=== PATIENT | male | born 1950 | race Caucasian/White ===

== ENCOUNTER 2021-12-20 18:54 | Emergency (ER) | payer OTHER, SELFPAY ==
--- NOTE | ~2021-12-20 | CT_ITS ---
EXAMINATION: CT brain wo con DATE: 12/20/2021 19:49 INDICATION: slurred speech, ataxia . TECHNIQUE: Computed tomography (CT) of the head was performed without intravenous contrast. The mA wa s adjusted according to patient size. Iterative reconstruction technique was employed. The dose-lengt h product was 908.00 mGy-cm. COMPARISON: None FINDINGS: Motion limited examination that required repeat imaging. No acute intracranial hemorrhage or extra-axial fluid collection. No hydrocephalus, mass, or herniation. No acute ischemic infarct. Unremarkable dural venous sinus attenuation. No acute osseous abnormality. The aerated spaces are clear. Mild atrophy and chronic white matter change. Atherosclerotic intracranial calcifications. IMPRESSION: Motion limited examination. Within that constraint, no acute intracranial process. Reviewed, dictated and finalized at location K. IMPRESSION: Motion limited examination. Within that constraint, no acute intracranial proce ss.
[2021-12-20 19:00] VITALS: BP 136/90; PULSE 68; RESP 15; O2SAT 100
--- NOTE | 2021-12-20 19:39 | ED.NEUROSD ---
HPI - Neuro Symptoms/Deficit General Chief Complaint: Alcohol Stated Complaint: unspecified Time Seen by Provider: 12/20/21 19:03 History of Present Illness HPI Narrative: 71-year-old male presents here after he was found stumbling with slurred speech, he had had 6 beers earlier but per his friends and family he is usually not in the state after just drinking 6 beers, he had also supposedly hit his head, he states that he is on a blood thinner but cannot recall what. Denies any focal numbness or weakness. Related Data Home Medications Medication Instructions Recorded Confirmed Unable to Obtain Home Medications 12/20/21 12/20/21 Allergies Allergy/AdvReac Type Severity Reaction Status Date / Time No Known Allergies Allergy Verified 12/20/21 19:48 Review of Systems Review of Systems: CONST: No fever. HEENT: Head trauma C/V: No chest pain RESP: No cough GI: No nausea or vomiting : No dysuria. M/S: No joint pain. SKIN: Contusion the head NEURO: [No focal numbness or weakness] PSYCH: [No depression] PMFSH Past Medical History Medical History (Updated 12/20/21 @ 20:36 by Marlene Vargas MD) Hypertension Social History Social History (Updated 12/20/21 @ 19:43 by Marlene Vargas MD) Alcohol intake: current Course Vital Signs Vital signs: Vital Signs Pulse Rate 68 12/20/21 19:00 Respiratory Rate 15 12/20/21 19:00 Blood Pressure 136/90 12/20/21 19:00 Pulse Oximetry 100 12/20/21 19:00 Oxygen Delivery Room Air 12/20/21 19:00 Pulse Rate 68 12/20/21 19:00 Respiratory Rate 15 12/20/21 19:00 Blood Pressure 136/90 12/20/21 19:00 Pulse Oximetry 100 12/20/21 19:00 Oxygen Delivery Room Air 12/20/21 19:00 MDM - Neuro Symptoms/Deficit MDM Narrative Medical decision making narrative: 71-year-old male presents here after having a few alcoholic drinks, his friends noticed that he seemed to be stumbling and slurring and hit his head, patient himself denies any concerns. Vital signs stable, exam does show a Gigli affable male who appears acutely intoxicated with slight slurred speech, NIH stroke scale here is 1. Very low concern for CVA as more likely secondary to alcohol intoxication, but I will obtain a CT head Noncon to rule out hemorrhage. This is negative for acute bleed, patient slurred speech has already been improving while he has been in the ER, and alcohol level here is confirmed to be elevated at 284 and UDS + for cannabis, he does have someone who had come to take him home and I feel this is reasonable, he is to follow-up with his primary care doctor in the next 1 to 2 days and can come back if he has any further issues Lab Data Result diagrams: 12/20/21 20:00 12/20/21 20:01 Labs: Lab Results 12/20/21 12/20/21 12/20/21 Range/Units 20:00 20:00 20:01 WBC 11.9 H (4.5-10.0) K/mm3 RBC 3.97 L (4.6-6.20) M/mm3 Hgb 14.0 (14.0-18.0) g/dL Hct 41.3 L (42.0-52.0) % MCV 104.0 H (80-100) fl MCH 35.3 H (26-34) pg MCHC 33.9 (32-36) g/dl RDW 14.0 (11.5-14.5) % Plt Count 202 (150-375) k/mm3 MPV 9.7 (7.4-10.4) fl Immature Gran % (Auto) 0.3 (0-0.5) % Neut % (Auto) 65.9 (45.5-73.1) % Lymph % (Auto) 24.5 (18.3-44.2) % [place] % (Auto) 7.1 (2.6-8.5) % Eos % (Auto) 1.3 (0-4.4) % Baso % (Auto) 0.9 (0.2-1.2) % Lymph # (Auto) 2.91 (0.9-3.2) K/mm3 [place] # (Auto) 0.8 H (0.1-0.6) K/mm3 Eos # (Auto) 0.2 (0-0.3) K/mm3 Baso # (Auto) 0.1 (0.0-0.1) K/mm3 Abs Immat Gran (auto) 0.04 H (0.00-0.031) K/mm3 Absolute Neuts (auto) 7.8 H (1.3-6.7) K/mm3 Absolute Nucleated RBC 0.0 (0.0-0.012) K/mm3 Nucleated RBC % 0.0 (0.0-0.2) % PT (11.1-14.7) Seconds INR APTT (22.3-36.8) SECONDS Sodium 134 L (137-145) mmol/L Potassium 3.9 (3.4-5.0) mmol/L Chloride 104 (98-107) mmol/L Carbon Dioxide 19 L (22-30) mmol/L Anion Gap 11
[2021-12-20 20:08] LABS: Basophils Absolute Auto 0.1 K/mm3 (0.0-0.1); Basophils Percent Auto 0.9 % (0.2-1.2); Eosinophils Absolute Auto 0.2 K/mm3 (0-0.3); Eosinophils Percent Auto 1.3 % (0-4.4); Hematocrit 41.3 % (42.0-52.0); Immature Granulocyte Absolute 0.04 K/mm3 (0.00-0.031); Immature Granulocyte Percent A 0.3 % (0-0.5); Lymphocytes Absolute Auto 2.91 K/mm3 (0.9-3.2); Lymphocytes Percent Auto 24.5 % (18.3-44.2); Mean Corpuscular HGB Conc 33.9 g/dl (32-36); Mean Corpuscular Hemoglobin 35.3 pg (26-34); Mean Platelet Volume 9.7 fl (7.4-10.4); Monocytes Absolute Auto 0.8 K/mm3 (0.1-0.6); Monocytes Percent Auto 7.1 % (2.6-8.5); Neutrophils Absolute Auto 7.8 K/mm3 (1.3-6.7); Neutrophils Percent Auto 65.9 % (45.5-73.1); Platelet Count Result 202 k/mm3 (150-375); Red Blood Count 3.97 M/mm3 (4.6-6.20); White Blood Count 11.9 K/mm3 (4.5-10.0)
[2021-12-20 20:17] LABS: Prothrombin Time 13.2 Seconds (11.1-14.7)
[2021-12-20 20:18] LABS: Ethanol 284 mg/dL (<10)
[2021-12-20 20:19] LABS: Alanine Aminotransferase 22 U/L (6-50); Albumin Level 4.4 g/dL (3.5-5.1); Alkaline Phosphatase 66 U/L (38-126); Anion Gap 11 mmol/L (8-16); Aspartate Amino Transferase 29 U/L (17-59); Bilirubin,Total 0.3 mg/dL (0.2-1.3); Blood Urea Nitrogen 12 mg/dL (9-20); Calcium 8.6 mg/dL (8.4-10.2); Carbon Dioxide 19 mmol/L (22-30); Chloride 104 mmol/L (98-107); Estimated CRCL calculation 48 ml/min; Estimated Glomerular Filt Rate 54; Glucose 91 mg/dL (65-110); Potassium 3.9 mmol/L (3.4-5.0); Sodium 134 mmol/L (137-145)
[2021-12-20 20:31] LABS: Troponin I < 0.012 ng/mL (0.000-0.034)
[2021-12-20 20:33] LABS: Amphetamine Screen Urine Negative (Negative); Barbiturate Screen Urine Negative (Negative); Benzodiazepines Screen Urine Negative (Negative); Cannabinoid Screen Urine Positive (Negative); Cocaine Screen Urine Negative (Negative); Methadone Screen Urine Negative (Negative); Opiate Screen Urine Negative (Negative); Phencyclidine Screen Urine Negative (Negative)
[2021-12-20 20:36] LABS: Add Urine Microscopic? NO; Appearance Urine Clear (Clear); Bacteria Urine Trace /hpf; Bilirubin Urine Negative (Negative); Blood Urine Negative (Negative); Color Urine Yellow (Yellow); Glucose Urine UA Negative (Negative); Ketones Urine Negative (Negative); Leukocyte Esterase Ur Negative LEU/UL (Negative); Nitrate Urine Negative (Negative); Protein Urine Negative (Negative); RBC Urine 0-2 /hpf (0-2); Specific Grav Ur <= 1.005 (1.001-1.035); Urobilinogen Urine 0.2 mg/dL (<2.0); WBC Urine 0-3 /hpf; pH Urine 5.5 (5.0-9.0)
[2021-12-20 20:53] VITALS: BP 142/70; PULSE 78; RESP 16; TEMP 36.6; O2SAT 98
== END 2021-12-20 20:57 | disposition home or self-care (01) ==
PROVIDERS: Emergency Provider Emergency Medicine
DX: F10.129 Alcohol abuse with intoxication, unspecified (principal); Y90.8 Blood alcohol level of 240 mg/100 ml or more; I10 Essential (primary) hypertension
CPT/HCPCS: 36415; 70450; 80053; 80307; 81003; 84484; 85025; 85610; 85730; 99284

== ENCOUNTER 2024-09-21 18:01 | Emergency (ER) | payer OTHER, SELFPAY ==
--- NOTE | ~2024-09-21 | CT_ITS ---
EXAMINATION: CT brain wo con DATE: 09/21/2024 18:51 INDICATION: altered loc . TECHNIQUE: Computed tomography (CT) of the head was performed without intravenous contrast. The mA wa s adjusted according to patient size. Iterative reconstruction technique was employed. The dose-lengt h product was 681.00 mGy-cm. COMPARISON: 12/20/2021. FINDINGS: No acute intracranial hemorrhage or extra-axial fluid collection. No hydrocephalus, mass, or herniation. No acute ischemic infarct. Unremarkable dural venous sinus attenuation. No acute osseous abnormality. The aerated spaces are clear. Mild atrophy and chronic white matter change. Atherosclerotic intracranial calcifications. IMPRESSION: No acute intracranial process. Reviewed, dictated and finalized at location K.
--- NOTE | ~2024-09-21 | XR_ITS ---
EXAMINATION: XR chest 1V Exam Date/Time: 09/21/2024 18:45 CDT HISTORY: cough Comparison: None. RESULT: Lines, tubes, and devices: None. Lungs and pleura: Minimal streaky right basilar opacities representing atelectasis, otherwise clear. Cardiomediastinal silhouette: Stable. Other: No acute osseous or upper abdominal finding. IMPRESSION: No acute cardiopulmonary process. Reviewed, dictated and finalized at location K.
[2024-09-21 18:02] VITALS: BP 131/97; PULSE 74; RESP 20; O2SAT 73
[2024-09-21 18:10] VITALS: TEMP 36.2
[2024-09-21 18:11] VITALS: PULSE 89
--- NOTE | 2024-09-21 18:21 | ED_ITS ---
HPI - Altered Mental Status General Chief Complaint: Altered Mental Status <Benitofrancis Avilesver III, DO - Last Filed: 09/21/24 18:28> Stated Complaint: found on ground, altered <Benitofrancis Avilesver III, DO - Last Filed: 09/21/24 18:28> Time Seen by Provider: 09/21/24 18:11 <Benitofrancis Landry Villalobos III, DO - Last Filed: 09/21/24 18:28> History of Present Illness HPI narrative: Pt found on ground not responding. Pt now more awake. admits to drinking 4 beers and smoking a lot of weed. Pt not sure how he got here and doesn't remember EMS ride or any fall. <Benito Avilesver III, DO - Last Filed: 09/21/24 18:28> Related Data Home Medications: Home Medications ?Medication ?Instructions ?Recorded ?Confirmed ?Last Taken ?Type Unable to Obtain Home Medications 12/20/21 12/20/21 Unknown History <Benito Avilesver III, DO - Last Filed: 09/21/24 18:28> Allergies/Adverse Reactions: Allergies Allergy/AdvReac Type Severity Reaction Status Date / Time No Known Allergies Allergy Verified 09/21/24 20:10 <Benitofrancis Villalobos III, DO - Last Filed: 09/21/24 18:28> Review of Systems 2 Review of Systems: All systems reviewed & are unremarkable except as noted in HPI and below <Benito Avilesver III, DO - Last Filed: 09/21/24 18:28> PMFSH Past Medical History Medical History: Medical History (Updated 09/21/24 @ 20:50 by Diana Long MD) Hypertension <Benitofrancis Villalobos III, DO - Last Filed: 09/21/24 18:28> Social History Social History: Social History (Updated 12/20/21 @ 19:43 by Marlene Vargas MD) Alcohol intake: current <Benitofrancis Avilesver III, DO - Last Filed: 09/21/24 18:28> Exam 2 Const: General: healthy appearing and no acute distress <Benito Frantz Villalobos III, DO - Last Filed: 09/21/24 18:28> Nutritional Appearance: well nourished <Benitofrancis Landry Villalobos III, DO - Last Filed: 09/21/24 18:28> Limitations: altered mental status <Benito Frantz Villalobos III, DO - Last Filed: 09/21/24 18:28> HENMT: Head: contusion (abrasion to forehead) <Benito Frantz Villalobos III, DO - Last Filed: 09/21/24 18:28> Resp: Effort & Inspection: normal respiratory effort <Benito Frantz Villalobos III, DO - Last Filed: 09/21/24 18:28> Auscultation: clear to auscultation bilaterally <Benito Frantz Villalobos III, DO - Last Filed: 09/21/24 18:28> Cardio: Rate: regular rate <Benito Frantz Villalobos III, DO - Last Filed: 09/21/24 18:28> Rhythm: regular rhythm <Benito Frantz Villalobos III, DO - Last Filed: 09/21/24 18:28> GI: GI Palp: Yes Soft to palpation and No Tenderness to palpation present (GI) <Benito Frantz Villalobos III, DO - Last Filed: 09/21/24 18:28> Auscultation: normal bowel sounds <Benito Frantz Villalobos III, DO - Last Filed: 09/21/24 18:28> Back/Spine/Pelvis: Back: no CVA tenderness <Benito Frantz Villalobos III, DO - Last Filed: 09/21/24 18:28> Skin: General skin exam: normal color <Benito Frantz Villalobos III, DO - Last Filed: 09/21/24 18:28> Rashes: no rashes <Benito Frantz Villalobos III, DO - Last Filed: 09/21/24 18:28> Wounds: wounds noted (abrasion to right hand) <Benito Frantz Villalobos III, DO - Last Filed: 09/21/24 18:28> Neuro: General: moves all extremities, no meningeal signs, no focal motor deficits and CN's II-XI intact bilaterally <Benito Frantz Villalobos III, DO - Last Filed: 09/21/24 18:28> Speech: Abnormal speech present (slurred slightly) slurred <Benito Frantz Villalobos III, DO - Last Filed: 09/21/24 18:28> Extrem: General: normal to inspection and no clubbing, cyanosis or edema < Benito Frantz Villalobos III, DO - Last Filed: 09/21/24 18:28> Psych: Affect: normal affect <Benito Frantz Villalobos III, DO - Last Filed: 09/21/24 18:28> Attitude: cooperative <Benito Frantz Villalobos III, DO - Last Filed: 09/21/24 18:28> Other: odor of etoh on breath, pt oriented to self now and answering questions. <Benito Frantz Villalobos III, DO - Last Filed: 09/21/24 18:28> Course Vital Signs Vital signs: Vital Signs Pulse Rate 74 09/21/24 18:02 Respiratory Rate 20 09/21/24 18:02 Blood Pressure 131/97 H 09/21/24 18:02 Pulse Oximetry 73 L 09/21/24 18:02 Oxygen Delivery Room Air 09/21/24 18:02 Temperature 97.1 F L 09/21/24 18:10 Pulse Rate 89 09/21/24 18:11 Respiratory Rate 20 09/21/24 18:02 Blood Pressure 131/97 H 09/21/24 18:02 Pulse Oximetry 73 L 09/21/24 18:02 Oxygen Delivery Room Air 09/21/24 18:18 <Benito Frantz Villalobos III, DO - Last Filed: 09/21/24 18:28> Vital Signs Pulse Rate 74 09/21/24 18:02 Respiratory Rate 20 09/21/24 18:02 Blood Pressure 131/97 H 09/21/24 18:02 Pulse Oximetry 73 L 09/21/24 18:02 Oxygen Delivery Room Air 09/21/24 18:02 Temperature 97.1 F L 09/21/24 18:10 Pulse Rate 89 09/21/24 18:11 Respiratory Rate 20 09/21/24 18:02 Blood Pressure 131/97 H 09/21/24 18:02 Pulse Oximetry 73 L 09/21/24 18:02 Oxygen Delivery Room Air 09/21/24 18:18 <Diana Long MD - Last Filed: 09/21/24 23:24> MDM - Altered Mental Status MDM Narrative Medical decision making narrative: Pt found unresponsive. admits to consuming alcohol and marijuana. will get labs and altered LOC work up including CT brain and sepsis work up. will turn over to Dr Long at 1900 pending work up. <Benito Villalobos III, DO - Last Filed: 09/21/24 18:28> Pt found unresponsive. admits to consuming alcohol and marijuana. will get labs and altered LOC work up including CT brain and sepsis work up. will turn over to Dr Long at 1900 pending work up. Patient was signed out to me pending remainder of the workup. Laboratory results obtained revealing an alcohol level of 290, lactic acid of 2.5 otherwise unremarkable. Urinalysis unremarkable. Urine drug test did return back positive for cannabinoids. Patient was informed that he needs to be observed in the emergency department until he is clinically sober. Imaging studies obtained included CT brain without IV contrast which was independently interpreted by me revealing no acute intracranial process, which is pending final radiology interpretation. Portable chest x-ray was also obtained at this time include interpreted by me revealing no acute cardiopulmonary process. Differential diagnosis considerations include alcohol intoxication, drug intoxication, infectious process. Comorbidities impacting this visit include none. I have evaluated and discussed social determinants of health with the patient that could potentially impact subsequent diagnosis and treatment plans. On repeat assessment of the patient, reevaluation revealed that the patient is doing well and is in no acute distress. Patient symptoms have improved since he arrived to our emergency department. Repeat vital signs were all reviewed and noted to be stable. Differential diagnosis and treatment plan were discussed with the patient at bedside. Patient has a sober ride home, his friend En is here to pick him up. Patient will follow up with his PCP in 3-5 days. Patient was provided with strict return precautions and instructed to return to the emergency department if any new or worsening symptoms develop. The patient was discharged in stable condition. <Diana Long MD - Last Filed: 09/21/24 23:24> Lab Data Result diagrams: 09/21/24 19:46 09/21/24 19:46 <Benito Villalobos III, DO - Last Filed: 09/21/24 18:28> Labs: Lab Results 09/21/24 09/21/24 Range/Units 19:46 20:17 WBC 12.8 H (4.5-10.0) K/mm3 RBC 4.50 L (4.6-6.20) M/mm3 Hgb 15.5 (14.0-18.0) g/dL Hct 45.1 (42.0-52.0) % MCV 100.2 H (80-100) fl MCH 34.4 H (26-34) pg MCHC 34.4 (32-36) g/dl RDW 13.7 (11.5-14.5) % Plt Count 207 (150-375) k/mm3 MPV 9.5 (7.4-10.4) fl Immature Gran % (Auto) 0.6 H (0-0.5) % Neut % (Auto) 72.0 (45.5-73.1) % Lymph % (Auto) 16.3 L (18.3-44.2) % [place] % (Auto) 5.7 (2.6-8.5) % Eos % (Auto) 4.5 H (0-4.4) % Baso % (Auto) 0.9 (0.2-1.2) % Lymph # (Auto) 2.09 (0.9-3.2) K/mm3 [place] # (Auto) 0.7 H (0.1-0.6) K/mm3 Eos # (Auto) 0.6 H (0-0.3) K/mm3 Baso # (Auto) 0.1 (0.0-0.1) K/mm3 Abs Immat Gran (auto) 0.08 H (0.00-0.031) K/mm3 Absolute Neuts (auto) 9.3 H (1.3-6.7) K/mm3 Absolute Nucleated RBC 0.000 (0.0-0.012) K/mm3 Nucleated RBC % 0.0 (0.0-0.2) % PT 13.5 (11.1-14.7) Seconds INR 1.0 APTT 27.0 (22.3-36.8) Seconds Sodium 133 L (137-145) mmol/L Potassium 3.7 (3.4-5.0) mmol/L Chloride 99 (98-107) mmol/L Carbon Dioxide 18 L (22-30) mmol/L Anion Gap 16 H (4-12) mmol/L BUN 11 (9-20) mg/dL Creatinine 1.19 (0.7-1.3) mg/dL Estim Creat Clear Calc 59 ml/min Estimated GFR 60 (59 - ) Glucose 100 (65-110) mg/dL Lactic Acid 2.5 H (0.7-2.0) mmol/L Calcium 8.6 (8.4-10.2) mg/dL Total Bilirubin 0.4 (0.2-1.3) mg/dL AST 34 (17-59) U/L ALT 34 (6-50) U/L Alkaline Phosphatase 72 (38-126) U/L Total Protein 7.0 (6.3-8.2) g/dL Albumin 4.5 (3.5-5.1) g/dL Urine Color Yellow (Yellow) Urine Appearance Clear (Clear) Urine pH 5.5 (5.0-9.0) Ur Specific [place] 1.005 (1.001-1.035) Urine Protein Negative (Negative) mg/dL Urine Glucose (UA) Negative (Negative) mg/dL Urine Ketones Negative (Negative) mg/dL Ur Blood (Man) Negative (Negative) Urine Nitrate Negative (Negative) Urine Bilirubin Negative (Negative) Urine Urobilinogen 0.2 (<2.0) mg/dL Add Ur Microanalysis Reviewed Leukocyte Esterase Rfl Trace H (Negative) PERLA/UL Urine RBC 0-2 (0-2) /hpf Urine WBC 0-5 (0-3) /hpf Ur Squamous Epith Cells None seen (Few) /hpf Urine Bacteria None seen /hpf Urine Casts 0-2 Salicylates < 1.0 L (2-20) mg/dL Urine Opiates Screen Negative (Negative) Urine Methadone Screen Negative (Negative) Acetaminophen < 10 L (10-30) ug/mL Ur Barbiturates Screen Negative (Negative) Ur Phencyclidine Scrn Negative (Negative) Ur Amphetamine Screen Negative (Negative) U Benzodiazepines Scrn Negative (Negative) Urine Cocaine Screen Negative (Negative) U Cannabinoids Screen Positive A (Negative) Ethyl Alcohol 290 (<10) mg/dL <Benito Villalobos III, DO - Last Filed: 09/21/24 18:28> Lab Results 09/21/24 09/21/24 Range/Units 19:46 20:17 WBC 12.8 H (4.5-10.0) K/mm3 RBC 4.50 L (4.6-6.20) M/mm3 Hgb 15.5 (14.0-18.0) g/dL Hct 45.1 (42.0-52.0) % MCV 100.2 H (80-100) fl MCH 34.4 H (26-34) pg MCHC 34.4 (32-36) g/dl RDW 13.7 (11.5-14.5) % Plt Count 207 (150-375) k/mm3 MPV 9.5 (7.4-10.4) fl Immature Gran % (Auto) 0.6 H (0-0.5) % Neut % (Auto) 72.0 (45.5-73.1) % Lymph % (Auto) 16.3 L (18.3-44.2) % [place] % (Auto) 5.7 (2.6-8.5) % Eos % (Auto) 4.5 H (0-4.4) % Baso % (Auto) 0.9 (0.2-1.2) % Lymph # (Auto) 2.09 (0.9-3.2) K/mm3 [place] # (Auto) 0.7 H (0.1-0.6) K/mm3 Eos # (Auto) 0.6 H (0-0.3) K/mm3 Baso # (Auto) 0.1 (0.0-0.1) K/mm3 Abs Immat Gran (auto) 0.08 H (0.00-0.031) K/mm3 Absolute Neuts (auto) 9.3 H (1.3-6.7) K/mm3 Absolute Nucleated RBC 0.000 (0.0-0.012) K/mm3 Nucleated RBC % 0.0 (0.0-0.2) % PT 13.5 (11.1-14.7) Seconds INR 1.0 APTT 27.0 (22.3-36.8) Seconds Sodium 133 L (137-145) mmol/L Potassium 3.7 (3.4-5.0) mmol/L Chloride 99 (98-107) mmol/L Carbon Dioxide 18 L (22-30) mmol/L Anion Gap 16 H (4-12) mmol/L BUN 11 (9-20) mg/dL Creatinine 1.19 (0.7-1.3) mg/dL Estim Creat Clear Calc 59 ml/min Estimated GFR 60 (59 - ) Glucose 100 (65-110) mg/dL Lactic Acid 2.5 H (0.7-2.0) mmol/L Calcium 8.6 (8.4-10.2) mg/dL Total Bilirubin 0.4 (0.2-1.3) mg/dL AST 34 (17-59) U/L ALT 34 (6-50) U/L Alkaline Phosphatase 72 (38-126) U/L Total Protein 7.0 (6.3-8.2) g/dL Albumin 4.5 (3.5-5.1) g/dL Urine Color Yellow (Yellow) Urine Appearance Clear (Clear) Urine pH 5.5 (5.0-9.0) Ur Specific [place] 1.005 (1.001-1.035) Urine Protein Negative (Negative) mg/dL Urine Glucose (UA) Negative (Negative) mg/dL Urine Ketones Negative (Negative) mg/dL Ur Blood (Man) Negative (Negative) Urine Nitrate Negative (Negative) Urine Bilirubin Negative (Negative) Urine Urobilinogen 0.2 (<2.0) mg/dL Add Ur Microanalysis Reviewed Leukocyte Esterase Rfl Trace H (Negative) PERLA/UL Urine RBC 0-2 (0-2) /hpf Urine WBC 0-5 (0-3) /hpf Ur Squamous Epith Cells None seen (Few) /hpf Urine Bacteria None seen /hpf Urine Casts 0-2 Salicylates < 1.0 L (2-20) mg/dL Urine Opiates Screen Negative (Negative) Urine Methadone Screen Negative (Negative) Acetaminophen < 10 L (10-30) ug/mL Ur Barbiturates Screen Negative (Negative) Ur Phencyclidine Scrn Negative (Negative) Ur Amphetamine Screen Negative (Negative) U Benzodiazepines Scrn Negative (Negative) Urine Cocaine Screen Negative (Negative) U Cannabinoids Screen Positive A (Negative) Ethyl Alcohol 290 (<10) mg/dL <Diana Long MD - Last Filed: 09/21/24 23:24> Discharge Plan Discharge Clinical Impression: Alcoholic intoxication <Benito Villalobos III DO - Last Filed: 09/21/24 18:28> Patient Disposition: Home, Self-Care <Benito Villalobos III DO - Last Filed: 09/21/24 18:28> Condition: Improved <Benito Villalobos III DO - Last Filed: 09/21/24 18:28> Instructions: Antibiotic Form, Alcohol Intoxication (DC) <Benito Villalobos III, DO - Last Filed: 09/21/24 18:28> Additional Instructions: Please follow-up with your family doctor within the next 3-5 days. Return to emergency department for new or worsening symptoms develop. <Benito Villalobos III, DO - Last Filed: 09/21/24 18:28> Patient Language: Yemeni <Benito Villalobos III, DO - Last Filed: 09/21/24 18:28> Prescriptions: No Action Unable to Obtain Home Medications <Benito Villalobos III, DO - Last Filed: 09/21/24 18:28> Follow-up/Referrals: UNKNOWN,DOCTOR [Primary Care Provider] - Joelle Campa DO [Physician] - 3 Days <Benito Villalobos III DO - Last Filed: 09/21/24 18:28> Time of Disposition: 23:22 <Benito Villalobos III, DO - Last Filed: 09/21/24 18:28> 23:22 <Diana Long MD - Last Filed: 09/21/24 23:24>
--- NOTE | 2024-09-21 18:34 | ECG_ITS ---
Test Date: 2024-09-21 18:58:25 Measurements Intervals [place] Rate: 72 P: 44 RI: 230 QRS: 4 QRSD: 84 T: 50 QT: 375 QTc: 412 Interpretive Statements SINUS RHYTHM WITH FIRST DEGREE AV BLOCK No previous ECG available for comparison Electronically Signed On 09-22-2024 14:35:46 CDT by Luis Miguel Andrade M.D.
--- NOTE | 2024-09-21 18:53 | PC.NURSE ---
Patient is in CT
--- NOTE | 2024-09-21 19:19 | PC.NURSE ---
Patient pulled his line out. Attempting to get another line placed. Phlebotomy at bedside for blood draw
--- OUTSIDE RECORDS SUMMARY | 2024-09-21 19:28 | XMS_ITS | Referral Summary ---
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 This disclosure is being madepursuant to the Care Everywhere program and may not contain all information available regarding this patient. Last updated 18.[facility] Allergies No known active allergies Medications * Be aware that medications may not be up to date on this document. Alwaysverify current medications with the patient. Medication Sig Dispensed Refills Start Date End Date Status erythromycin (ROMYCIN) 5 MG/GM ophthalmic ointment Instill into right eye 2 times daily 3.5 g 11/08/2018 Active Active Problems Problem Noted Date Diagnosed Date Right eyelid laceration 11/17/2018 Social History Tobacco Use Types Packs/Day Years Used Date Smoking Tobacco: Every Day Cigarettes Smokeless Tobacco: Never Alcohol Use Standard Drinks/Week Comments Yes 0 (1 standard drink = 0.6 oz pur e alcohol) Sex and Gender Information Value Date Recorded Sex Assigned at Not on file Gender Identity Not on file Sexual Orientation Not on file Last Filed Vital Signs Vital Sign Reading Time Taken Comments Blood Pressure 148/72 11/08/2018 6:35 AM CDT Pulse 87 11/08/2018 9:10 AM CDT Temperature 36.9 C (98.4 F) 11/07/2018 10:17 PM CDT Respiratory Rate 16 11/07/2018 10:17 PM CDT Oxygen Saturation 97% 11/08/2018 11:30 AM CDT Inhaled Oxygen Concentration - - Weight 90.7 kg (200 lb) 11/07/2018 10:17 PM CDT Height 177.8 cm (5' 10 ) 11/07/2018 10:17 PM CDT Body Mass Index 28.7 11/07/2018 10:17 PM CDT Plan of Treatment Not on file Procedures Procedure Name Priority Date/Time Associated Diagnosis Comments BASIC METABOLIC PANEL (CALCIUM TOTAL) STAT 11/07/2018 10:29 PM CDT HEPATITIS C AB SCREEN RFLX NAAT QUANT STAT 11/07/2018 10:29 PM CDT from Last 3 Months or Most Recently Relevant to Health Maintenance Results * (ABNORMAL) HEPATITIS C AB SCREEN RFLX NAAT QUANT (11/07/2018 10:29 PM CDT) [facility] Hepatitis C Antibody Reactive( A) Non-react ellen 11/07/2018 11:11 PM CDT [facility] Comment: Serum for supplemental Hepatitis C quantitative RNA PCR testing will be reflexively sent out by the lab. Blood BLOOD SPECIMEN / Unknown Venipuncture / Unknown 11/07/2018 10:29 PM CDT 11/07/2018 10:29 PM CDT Marcelino Recinos MD [facility] Organization Address City/State/ZIP Co de Phone Number [address] [phone] * (ABNORMAL) BASIC METABOLIC PANEL (CALCIUM TOTAL) (11/07/2018 10:29 PM CDT) [facility] BUN 14 7 - 26 mg/dL 11/07/2018 10:50 PM CDT [facility] Creatinine 1.0 0.6 - 1.2 mg/dL 11/07/2018 10:50 PM CDT [facility] Sodium 135(L) 136 - 145 mmol/L 11/07/2018 10:50 PM CDT [facility] Potassium 3.6 3.5 - 4.5 mmol/L 11/07/2018 10:50 PM CDT [facility] Chloride 102 98 - 107 mmol/L 11/07/2018 10:50 PM CDT [facility] CO2 21(L) 22 - 29 mmol/L 11/07/2018 10:50 PM CDT [facility] Glucose 89 70 - 115 mg/dL 11/07/2018 10:50 PM CDT [facility] Calcium 8.8 8.4 - 10.2 mg/dL 11/07/2018 10:50 PM T [facility] Anion Gap 16 8 - 18 11/07/2018 10:50 PM [facility] BUN/Creatinine Ratio 14 7 - 23 11/07/2018 10:50 PM T [facility] Osmolality Calculated 280 270 - 300 mOsm/kg 11/07/2018 10:50 PM T [facility] eGFR >60 >60 mL/min/1.7 3 m2 11/07/2018 10:50 PM T [facility] Blood BLOOD SPECIMEN / Unknown Venipuncture / Unknown 11/07/2018 10:29 PM CDT 11/07/2018 10:29 PM CDT Yo Hicks MD LAB - CHEMISTRY [facility] Organization Address City/State/ZIP Co de Phone Number [facility] [address] [phone] from Last 3 Months or Most Recently Relevant to Health Maintenance
--- OUTSIDE RECORDS SUMMARY | 2024-09-21 19:28 | XMS_ITS | Clinical Summary ---
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 This disclosure is being madepursuant to the Care Everywhere program and may not contain all information available regarding this patient. Last updated 18.[facility] [employer] Allergies No known active allergies Medications * [...] 11/07/2018 10:17 PM CDT Plan of Treatment Health Maintenance Due Date Last Done Comments COLOGUARD (AGES 45-75) - COL ON CA SCREENING 1950 COLON MONITORING 1950 COLONOSCOPY - COLON CA SCREENING 1950 CT COLONOGRAPHY - COLON CA SCREENING 1950 Colorectal Cancer Screening 1950 FIT - COLON CA SCREENING 1950 FLEX SIG - COLON CA SCREENING 1950 LIPID TESTING 1950 MEDICARE AWV 12 MONTHS 1950 DTAP/TDAP/TD VACCINES (1 - Tdap) 1969 PNEUMOCOCCAL VACCINE 50+ (1 of 2 - PCV) 1969 ZOSTER VACCINE (1 of 2) 2000 AAA SCREENING 11/15/2015 SCREENING FOR DIABETES 11/07/2021 11/07/2018 COVID-19 VACCINE (1 - 2023-2 5 season) 2024 INFLUENZA VACCINE (#1) 2024 DEPRESSION SCREENING 07/15/2024 Respiratory Syncytial Virus (RSV) Vaccine Pt: or over 60 yrs (1 - 1-dose 75+ series) 2025 HEPATITIS C SCREENING Completed 11/07/2018 , 11/07/2018 HEPATITIS B VACCINE Aged Out No longe r eligible based on patient's age to complete this topic HIB VACCINE Aged Out No longer eligi ble based on patient's age to complete this topic HPV VACCINE Aged Out No longer eligi ble based on patient's age to complete this topic MENINGOCOCCAL (Group B) VACCINE Aged Out No longer eligible b ased on patient's age to complete this topic MENINGOCOCCAL VACCINE Aged Out No rhonda yunior eligible based on patient's age to complete this topic Procedures Procedure Name Priority Date/Time Associated Diagnosis Comments BASIC METABOLIC PANEL (CALCIUM TOTAL) STAT 11/07/2018 10:29 PM CDT HEPATITIS C AB SCREEN RFLX NAAT QUANT STAT 11/07/2018 10:29 PM CDT from Last 3 Months or Most Recently Relevant to Health Maintenance Results * (ABNORMAL) HEPATITIS C AB SCREEN RFLX NAAT QUANT (11/07/2018 10:29 PM CDT) Pathologist [facility] Hepatitis C Antibody Reactive( A) Non-react ellen 11/07/2018 11:11 PM [facility] Comment: Serum for supplemental Hepatitis C quantitative RNA PCR testing will be reflexively sent out by the lab. Blood BLOOD SPECIMEN / Unknown Venipuncture / Unknown 11/07/2018 10:29 PM CDT 11/07/2018 10:29 PM CDT Marcelino Recinos MD LAB - CHEMISTRY [facility] [address] [phone] * (ABNORMAL) BASIC METABOLIC PANEL (CALCIUM TOTAL) (11/07/2018 10:29 PM CDT) [facility] BUN 14 7 - 26 mg/dL 11/07/2018 10:50 PM [facility] Creatinine 1.0 0.6 - 1.2 mg/dL 11/07/2018 10:50 PM [facility] Sodium 135(L) 136 - 145 mmol/L 11/07/2018 10:50 PM [facility] Potassium 3.6 3.5 - 4.5 mmol/L 11/07/2018 10:50 PM [facility] Chloride 102 98 - 107 mmol/L 11/07/2018 10:50 PM [facility] CO2 21(L) 22 - 29 mmol/L 11/07/2018 10:50 PM [facility] Glucose 89 70 - 115 mg/dL 11/07/2018 10:50 PM [facility] Calcium 8.8 8.4 - 10.2 mg/dL 11/07/2018 10:50 PM [facility] Anion Gap 16 8 - 18 11/07/2018 10:50 PM [facility] BUN/Creatinine Ratio 14 7 - 23 11/07/2018 10:50 PM [facility] Osmolality Calculated 280 270 - 300 mOsm/kg 11/07/2018 10:50 PM [facility] eGFR >60 >60 mL/min/1.7 3 m2 11/07/2018 10:[address] [facility] Blood BLOOD SPECIMEN / Unknown Venipuncture / Unknown 11/07/2018 10:29 PM CDT 11/07/2018 10:29 PM CDT Yo Hicks MD LAB - CHEMISTRY [facility] [address] [phone] from Last 3 Months or Most Recently Relevant to Health Maintenance
--- OUTSIDE RECORDS SUMMARY | 2024-09-21 19:28 | XMS_ITS | Patient Health Summary ---
Author Organization [facility] Address [address] [place] [address] Care Team Providers Care Welfare Project Manager Name Role Phone Unavailable Primary Care Provider Unavailabl e Note from [facility],non-owned Affiliates and Associated Physician Practices is amultiple site organization consisting of ambulatory clinics and hospital sitesin [place], [place], [place] and [place]. This disclosure is being madepursuant to the Care Everywhere program and may not contain all information available regarding this patient. Last updated 18.[facility] Allergies No known active allergies Medications * Be aware that medications may not be up to date on this document. Alwaysverify current medications with the patient. * erythromycin (ROMYCIN) 5 MG/GM ophthalmic ointment(Started 11/08/2018) Instill into right eye 2 times daily Active Problems Problem Noted Date Diagnosed Date [...] Mass Index 28.7 11/07/2018 10:17 PM CDT Procedures * CARDIAC PROCEDURE ORDER(Performed 11/08/2018) * CT FACIAL BONES WO CONTRAST(Performed 11/08/2018) Performed for Fall, initial encounter * CT CERVICAL SPINE WO CONTRAST(Performed 11/08/2018) Performed for Fall, initial encounter * CT HEAD WO CONTRAST(Performed 11/08/2018) Performed for Fall, initial encounter * TYPE + SCREEN PANEL(Performed 11/07/2018) * HEPATITIS C RNA QUANTITATIVE(Performed 11/07/2018) * DIFFERENTIAL MANUAL(Performed 11/07/2018) * HEPATITIS C AB SCREEN RFLX NAAT QUANT(Performed 11/07/2018) * ALCOHOL ETHYL BLOOD(Performed 11/07/2018) * PT-INR [facility](Performed 11/07/2018) * PTT [facility](Performed 11/07/2018) * BASIC METABOLIC PANEL (CALCIUM TOTAL)(Performed 11/07/2018) * CBC W AUTO DIFFERENTIAL(Performed 11/07/2018) Results * CARDIAC PROCEDURE ORDER (11/08/2018 10:03 PM CDT) Narrative 11/08/2018 10:03 PM CDT Ordered by an unspecified provider. Scanned Document CARDIAC SERVICES ORD ERABLES * CT CERVICAL SPINE WO CONTRAST (11/08/2018 1:42 AM CDT) Anatomical Region Laterality Modality Spine Computed Tomogra phy 11/08/2018 1:40 AM CDT Impressions 11/08/2018 2:51 PM CDT IMPRESSION: 1. No acute intracranial process. 2. nondisplaced right zygomatic bone fracture . Right facial/periorbital soft tissue laceration, swelling, and gas extending to abut the underlying outer table of the right frontal bone. 3. No evidence of acute fracture in the cervical spine. Dictated by Сергей De Guzman M.D. (resident associate). I, Dr. JAMES HORAN have personally reviewed and interpreted this examination/study. This report was electronically signed by JAMES HORAN on 11/08/2018 2:51 PM . Narrative 11/08/2018 2:51 PM CDT EXAMINATION: 1. Computed tomography (CT) of the head without contrast 2. CT of the maxillofacial bones, orbits, and paranasal sinuses without contrast 3. CT of the cervical spine without contrast HISTORY: Fall TECHNIQUE: CT of the head, cervical spine, and maxillofacial bones, orbits, and paranasal sinuses was performed without contrast according to standard protocol. COMPARISON: No prior study is available for comparison at the time of this dictation. FINDINGS: HEAD: No acute intra- or extra-axial hemorrhage is identified. The ventricles are of normal size, shape, and morphology. The basilar cisterns are patent. No mass effect or midline shift is seen. The gr-white matter differentiation is normal. There is vascular calcification of the carotid siphons. No acute calvarial fracture is identified. A right frontal scalp laceration is noted. MAXILLOFACIAL: A nondisplaced acute right zygomatic bone fracture is identified (series 12 image 150). There is no other visible fracture. There is a right frontal scalp wound extending to the outer table of right frontal bone. No associated radiopaque foreign body or scalp hematoma is identified. The orbits and orbital contents appear normal. The left maxillary mild mucosal thickening and a conchal bullosa in the right middle turbinate. The patient is completely edentulous. The hard palate, mandible, and temporomandibular joints appear normal. No acute facial bone fractures are identified. The middle ear cavities and the mastoid air cells are clear. A right facial/periorbital laceration, extensive soft tissue swelling, and gas are seen. CERVICAL SPINE: The alignment is normal. Vertebral bodies are normal in height without evidence of acute fracture. Other than middle atlantoaxial joint osteoarthritis, the craniocervical junction appears normal. There is mild degenerative disc disease, most severe at C5-C6 followed by C6-C7. There is mild central canal stenosis at C5-C6 due to disc osteophyte complex. There are varying degrees of advanced facet osteoarthritis especially at the C2-C3, C3-C4 and C4-C5 levels. There are varying degrees of up to advanced uncovertebral joint osteoarthritis, most severely at C5-C6 and C6-C7, bilaterally, with the same degree of neural foraminal stenosis at these levels. There is atherosclerotic calcification of the carotid bifurcations. Procedure Note James Horan MD - 11/08/2018 EXAMINATION: 1. Computed tomography (CT) of the head without contrast 2. CT of the maxillofacial bones, orbits, and paranasal sinuses without contrast 3. CT of the cervical spine without contrast HISTORY: Fall TECHNIQUE: CT of the head, cervical spine, and maxillofacial bones, orbits, and paranasal sinuses was performed without contrast accordingto standard protocol. COMPARISON: No prior study is available for comparison at the time ofthis dictation. FINDINGS: HEAD: No acute intra- or extra-axial hemorrhage is identified. The ventricles are of normal size, shape, and morphology. The basilar cisterns are patent. No mass effect or midline shift is seen. The gr-white matter differentiation is normal. There is vascular calcification of thecarotid siphons. No acute calvarial fracture is identified. A right frontalscalp laceration is noted. MAXILLOFACIAL: A nondisplaced acute right zygomatic bone fracture is identified (series 12 image 150). There is no other visible fracture. There is a right frontal scalp wound extending to the outer table of right frontal bone.No associated radiopaque foreign body or scalp hematoma is identified. The orbits and orbital contents appear normal. The left maxillary mild mucosal thickening and a conchal bullosa in the right middle turbinate. The patient is completely edentulous. The hard palate, mandible, and temporomandibular joints appear normal. No acute facial bone fracturesare identified. The middle ear cavities and the mastoid air cells are clear.A right facial/periorbital laceration, extensive soft tissue swelling, and gas are seen. CERVICAL SPINE: The alignment is normal. Vertebral bodies are normal in height without evidence of acute fracture. Other than middle atlantoaxial joint osteoarthritis, the craniocervical junction appears normal. There ismild degenerative disc disease, most severe at C5-C6 followed by C6-C7. There is mild central canal stenosis at C5-C6 due to disc osteophyte complex. There are varying degrees of advanced facet osteoarthritis especially at the C2-C3, C3-C4 and C4-C5 levels. There are varying degrees of up to advanced uncovertebral joint osteoarthritis, most severely at C5-C6 and C6-C7, bilaterally, with the same degree of neural foraminal stenosis at these levels. There is atherosclerotic calcification of the carotid bifurcations. IMPRESSION: 1. No acute intracranial process. 2. nondisplaced right zygomatic bone fracture . Right facial/periorbital soft tissue laceration, swelling, and gas extending to abut theunderlying outer table of the right frontal bone. 3. No evidence of acute fracture in the cervical spine. Dictated by Сергей De Guzman M.D. (resident associate). Dr. JAMES Chow have personally reviewed and interpreted this examination/study. This report was electronically signed by JAMES HORAN on 11/08/2018 2:51 PM . Yo Hicks MD CT ORDERABLES * CT FACIAL BONES WO CONTRAST (11/08/2018 1:42 AM CDT) Anatomical Region Laterality Modality Head Computed Tomogra phy 11/08/2018 1:40 AM CDT Impressions 11/08/2018 2:51 PM CDT IMPRESSION: 1. No acute intracranial process. 2. nondisplaced right zygomatic bone fracture . Right facial/periorbital soft tissue laceration, swelling, and gas extending to abut the underlying outer table of the right frontal bone. 3. No evidence of acute fracture in the cervical spine. Dictated by Сергей De Guzman M.D. (resident associate). Dr. JAMES Chow have personally reviewed and interpreted this examination/study. This report was electronically signed by JAMES HORAN on 11/08/2018 2:51 PM . Narrative 11/08/2018 2:51 PM CDT EXAMINATION: 1. Computed tomography (CT) of the head without contrast 2. CT of the maxillofacial bones, orbits, and paranasal sinuses without contrast 3. CT of the cervical spine without contrast HISTORY: Fall TECHNIQUE: CT of the head, cervical spine, and maxillofacial bones, orbits, and paranasal sinuses was performed without contrast according to standard protocol. COMPARISON: No prior study is available for comparison at the time of this dictation. FINDINGS: HEAD: No acute intra- or extra-axial hemorrhage is identified. The ventricles are of normal size, shape, and morphology. The basilar cisterns are patent. No mass effect or midline shift is seen. The gr-white matter differentiation is normal. There is vascular calcification of the carotid siphons. No acute calvarial fracture is identified. A right frontal scalp laceration is noted. MAXILLOFACIAL: A nondisplaced acute right zygomatic bone fracture is identified (series 12 image 150). There is no other visible fracture. There is a right frontal scalp wound extending to the outer table of right frontal bone. No associated radiopaque foreign body or scalp hematoma is identified. The orbits and orbital contents appear normal. The left maxillary mild mucosal thickening and a conchal bullosa in the right middle turbinate. The patient is completely edentulous. The hard palate, mandible, and temporomandibular joints appear normal. No acute facial bone fractures are identified. The middle ear cavities and the mastoid air cells are clear. A right facial/periorbital laceration, extensive soft tissue swelling, and gas are seen. CERVICAL SPINE: The alignment is normal. Vertebral bodies are normal in height without evidence of acute fracture. Other than middle atlantoaxial joint osteoarthritis, the craniocervical junction appears normal. There is mild degenerative disc disease, most severe at C5-C6 followed by C6-C7. There is mild central canal stenosis at C5-C6 due to disc osteophyte complex. There are varying degrees of advanced facet osteoarthritis especially at the C2-C3, C3-C4 and C4-C5 levels. There are varying degrees of up to advanced uncovertebral joint osteoarthritis, most severely at C5-C6 and C6-C7, bilaterally, with the same degree of neural foraminal stenosis at these levels. There is atherosclerotic calcification of the carotid bifurcations. Procedure Note James Horan MD - 11/08/2018 EXAMINATION: 1. Computed tomography (CT) of the head without contrast 2. CT of the maxillofacial bones, orbits, and paranasal sinuses without contrast 3. CT of the cervical spine without contrast HISTORY: Fall TECHNIQUE: CT of the head, cervical spine, and maxillofacial bones, orbits, and paranasal sinuses was performed without contrast accordingto standard protocol. COMPARISON: No prior study is available for comparison at the time ofthis dictation. FINDINGS: HEAD: No acute intra- or extra-axial hemorrhage is identified. The ventricles are of normal size, shape, and morphology. The basilar cisterns are patent. No mass effect or midline shift is seen. The gr-white matter differentiation is normal. There is vascular calcification of thecarotid siphons. No acute calvarial fracture is identified. A right frontalscalp laceration is noted. MAXILLOFACIAL: A nondisplaced acute right zygomatic bone fracture is identified (series 12 image 150). There is no other visible fracture. There is a right frontal scalp wound extending to the outer table of right frontal bone.No associated radiopaque foreign body or scalp hematoma is identified. The orbits and orbital contents appear normal. The left maxillary mild mucosal thickening and a conchal bullosa in the right middle turbinate. The patient is completely edentulous. The hard palate, mandible, and temporomandibular joints appear normal. No acute facial bone fracturesare identified. The middle ear cavities and the mastoid air cells are clear.A right facial/periorbital laceration, extensive soft tissue swelling, and gas are seen. CERVICAL SPINE: The alignment is normal. Vertebral bodies are normal in height without evidence of acute fracture. Other than middle atlantoaxial joint osteoarthritis, the craniocervical junction appears normal. There ismild degenerative disc disease, most severe at C5-C6 followed by C6-C7. There is mild central canal stenosis at C5-C6 due to disc osteophyte complex. There are varying degrees of advanced facet osteoarthritis especially at the C2-C3, C3-C4 and C4-C5 levels. There are varying degrees of up to advanced uncovertebral joint osteoarthritis, most severely at C5-C6 and C6-C7, bilaterally, with the same degree of neural foraminal stenosis at these levels. There is atherosclerotic calcification of the carotid bifurcations. IMPRESSION: 1. No acute intracranial process. 2. nondisplaced right zygomatic bone fracture . Right facial/periorbital soft tissue laceration, swelling, and gas extending to abut theunderlying outer table of the right frontal bone. 3. No evidence of acute fracture in the cervical spine. Dictated by Сергей De Guzman M.D. (resident associate). I, Dr. JAMES HORAN have personally reviewed and interpreted this examination/study. This report was electronically signed by JAMES HORAN on 11/08/2018 2:51 PM . Yo Hicks MD CT ORDERABLES * CT HEAD WO CONTRAST (11/08/2018 1:42 AM CDT) Anatomical Region Laterality Modality Head Computed Tomogra phy 11/08/2018 1:40 AM CDT Impressions 11/08/2018 2:51 PM CDT IMPRESSION: 1. No acute intracranial process. 2. nondisplaced right zygomatic bone fracture . Right facial/periorbital soft tissue laceration, swelling, and gas extending to abut the underlying outer table of the right frontal bone. 3. No evidence of acute fracture in the cervical spine. Dictated by Сергей De Guzman M.D. (resident associate). I, Dr. JAMES HORAN have personally reviewed and interpreted this examination/study. This report was electronically signed by JAMES HORAN on 11/08/2018 2:51 PM . Narrative 11/08/2018 2:51 PM CDT EXAMINATION: 1. Computed tomography (CT) of the head without contrast 2. CT of the maxillofacial bones, orbits, and paranasal sinuses without contrast 3. CT of the cervical spine without contrast HISTORY: Fall TECHNIQUE: CT of the head, cervical spine, and maxillofacial bones, orbits, and paranasal sinuses was performed without contrast according to standard protocol. COMPARISON: No prior study is available for comparison at the time of this dictation. FINDINGS: HEAD: No acute intra- or extra-axial hemorrhage is identified. The ventricles are of normal size, shape, and morphology. The basilar cisterns are patent. No mass effect or midline shift is seen. The gr-white matter differentiation is normal. There is vascular calcification of the carotid siphons. No acute calvarial fracture is identified. A right frontal scalp laceration is noted. MAXILLOFACIAL: A nondisplaced acute right zygomatic bone fracture is identified (series 12 image 150). There is no other visible fracture. There is a right frontal scalp wound extending to the outer table of right frontal bone. No associated radiopaque foreign body or scalp hematoma is identified. The orbits and orbital contents appear normal. The left maxillary mild mucosal thickening and a conchal bullosa in the right middle turbinate. The patient is completely edentulous. The hard palate, mandible, and temporomandibular joints appear normal. No acute facial bone fractures are identified. The middle ear cavities and the mastoid air cells are clear. A right facial/periorbital laceration, extensive soft tissue swelling, and gas are seen. CERVICAL SPINE: The alignment is normal. Vertebral bodies are normal in height without evidence of acute fracture. Other than middle atlantoaxial joint osteoarthritis, the craniocervical junction appears normal. There is mild degenerative disc disease, most severe at C5-C6 followed by C6-C7. There is mild central canal stenosis at C5-C6 due to disc osteophyte complex. There are varying degrees of advanced facet osteoarthritis especially at the C2-C3, C3-C4 and C4-C5 levels. There are varying degrees of up to advanced uncovertebral joint osteoarthritis, most severely at C5-C6 and C6-C7, bilaterally, with the same degree of neural foraminal stenosis at these levels. There is atherosclerotic calcification of the carotid bifurcations. Procedure Note James Horan MD - 11/08/2018 EXAMINATION: 1. Computed tomography (CT) of the head without contrast 2. CT of the maxillofacial bones, orbits, and paranasal sinuses without contrast 3. CT of the cervical spine without contrast HISTORY: Fall TECHNIQUE: CT of the head, cervical spine, and maxillofacial bones, orbits, and paranasal sinuses was performed without contrast accordingto standard protocol. COMPARISON: No prior study is available for comparison at the time ofthis dictation. FINDINGS: HEAD: No acute intra- or extra-axial hemorrhage is identified. The ventricles are of normal size, shape, and morphology. The basilar cisterns are patent. No mass effect or midline shift is seen. The gr-white matter differentiation is normal. There is vascular calcification of thecarotid siphons. No acute calvarial fracture is identified. A right frontalscalp laceration is noted. MAXILLOFACIAL: A nondisplaced acute right zygomatic bone fracture is identified (series 12 image 150). There is no other visible fracture. There is a right frontal scalp wound extending to the outer table of right frontal bone.No associated radiopaque foreign body or scalp hematoma is identified. The orbits and orbital contents appear normal. The left maxillary mild mucosal thickening and a conchal bullosa in the right middle turbinate. The patient is completely edentulous. The hard palate, mandible, and temporomandibular joints appear normal. No acute facial bone fracturesare identified. The middle ear cavities and the mastoid air cells are clear.A right facial/periorbital laceration, extensive soft tissue swelling, and gas are seen. CERVICAL SPINE: The alignment is normal. Vertebral bodies are normal in height without evidence of acute fracture. Other than middle atlantoaxial joint osteoarthritis, the craniocervical junction appears normal. There ismild degenerative disc disease, most severe at C5-C6 followed by C6-C7. There is mild central canal stenosis at C5-C6 due to disc osteophyte complex. There are varying degrees of advanced facet osteoarthritis especially at the C2-C3, C3-C4 and C4-C5 levels. There are varying degrees of up to advanced uncovertebral joint osteoarthritis, most severely at C5-C6 and C6-C7, bilaterally, with the same degree of neural foraminal stenosis at these levels. There is atherosclerotic calcification of the carotid bifurcations. IMPRESSION: 1. No acute intracranial process. 2. nondisplaced right zygomatic bone fracture . Right facial/periorbital soft tissue laceration, swelling, and gas extending to abut theunderlying outer table of the right frontal bone. 3. No evidence of acute fracture in the cervical spine. Dictated by Сергей De Guzman M.D. (resident associate). I, Dr. JAMES HORAN have personally reviewed and interpreted this examination/study. This report was electronically signed by JAMES HORAN on 11/08/2018 2:51 PM . Yo Hicks MD CT ORDERABLES * TYPE + SCREEN PANEL (11/07/2018 10:52 PM CDT) Antibody Screen NEG 9 11:35 PM CDT [facility] ABO Rh O POS 11/07/2018 11:35 PM CDT [facility] Blood Bank BLOOD SPECIMEN / Unknown Venipuncture / Unknown 11/07/2018 10:52 PM CDT 11/07/2018 10:52 PM CDT Yo Hicks MD LAB - BLOOD BANK ORD ERABLES [facility] [address] [place], [place] [id number] [place] [address] * PTT [facility] (11/07/2018 10:29 PM CDT) APTT 26.8 23.0 - 38.4 Seconds 11/07/2018 10:44 PM CDT [facility] Comment: * Please Note: New therapeutic range for heparin therapy. * Suggested therapeutic range for full dose I.V. heparin therapy for venous thromboembolism is 65 to 103 seconds. Blood BLOOD SPECIMEN / Unknown Venipuncture / Unknown 11/07/2018 10:29 PM CDT 11/07/2018 10:29 PM CDT Yo Hicks MD LAB - COAGULATION OR DERABLES Performing Organization Address [facility] Co de Phone Number [address] [phone] * PT-INR [facility] (11/07/2018 10:29 PM CDT) [facility] Signature PT 12.3 12.1 - 14.8 Seconds 11/07/2018 10:44 PM T [facility] INR 1.0 See Comment 11/07/2018 10:44 PM [facility] Comment: The suggested therapeutic range for standard coumadin (warfarin) therapy is an INR of 2.0-3.0. For high-risk patients (Mechanical Mitral Valve Prosthesis, etc.), the suggested prophylactic therapeutic range is an INR of 2.5-3.5. Blood BLOOD SPECIMEN / Unknown Venipuncture / Unknown 11/07/2018 10:29 PM CDT 11/07/2018 10:29 PM CDT Yo Hicks MD LAB - COAGULATION OR DERABLES Performing Organization Address [facility]/ZIP Co de Phone Number [address] [phone] * (ABNORMAL) HEPATITIS C AB SCREEN RFLX NAAT QUANT (11/07/2018 10:29 PM CDT) Hepatitis C Antibody Reactive( A) Non-react ellen 11/07/2018 11:11 PM CDT [facility] Comment: Serum for supplemental Hepatitis C quantitative RNA PCR testing will be reflexively sent out by the lab. Blood BLOOD SPECIMEN / Unknown Venipuncture / Unknown 11/07/2018 10:29 PM CDT 11/07/2018 10:29 PM CDT Marcelino Recinos MD LAB - CHEMISTRY [facility] Organization Address City/State/ZIP Co de Phone Number [facility] [address] [place] [address], [facility] [phone] * HEPATITIS C RNA QUANTITATIVE (11/07/2018 10:29 PM CDT) Pathologist [facility] Hepatitis C RNA PCR, Interp Not Detected Not Detected 11/13/2018 5:51 PM CDT [facility] Blood BLOOD SPECIMEN / Unknown Venipuncture / Unknown 11/07/2018 10:29 PM CDT 11/07/2018 11:11 PM CDT Narrative [facility] - 11/13/2018 5:51 PM CDT The Hepatitis C viral (HCV) RNA analysis utilized a serum sample, real-time reverse material handler loader PCR, and is reported as Not Detected, Detected (<12 IU/mL), Quantity (IU/mL) or >100,000,000 IU/mL. The limit of quantitation of the assay is 12 IU/mL (100% of samples with this HCV RNA level were detected). The linear range is from 12 IU/mL to 100,000,000 IU/mL. Values less than 12 IU/mL are reported as Detected (<12 IU/mL). Values greater than 100,000,000 IU/mL are reported as > 100,000,000 IU/mL. The detection/quantitation of HCV RNA in serum is based on the isolation of HCV RNA with reverse material handler loader of genomic HCV RNA followed by real-time PCR in the presence of an unrelated RNA internal control. The internal control ensures that RNA is isolated, and that no general significant inhibitors of the RT-PCR process are present. The analysis was performed using a [place] FDA approved test methodology ([employer] Real Time HCV). Marcelino Recinos MD LAB - CHEMISTRY CONNIE DIOP [facility] [address] [facility] [place] [address], [facility] [phone] * (ABNORMAL) DIFFERENTIAL MANUAL (11/07/2018 10:29 PM CDT) WBC (corrected for NRBC) 11.7 10 /uL 11/07/2018 11:00 PM [facility] Total Cell Count 100 11/07/2018 11:00 PM [facility] Neutrophils Absolute Manual 7.96(H) 1.60 - 7.00 10 /uL 11/07/2018 11:00 PM [facility] Comment:(BANDS+SEGS) x WBC = NEUT # (ANC) Lymphocyte Absolute Manual 3.16(H) 0.80 - 2.90 10 uL 11/07/2018 11:00 PM [facility] Monocytes Absolute Manual 0.35 0.14 - 0.66 10 /uL 11/07/2018 11:00 PM [facility] Eosinophils Absolute Manual 0.12 0.00 - 0.22 10 /uL 11/07/2018 11:00 PM [facility] Basophil Absolute Manual 0.12(H) 0.00 - 0.06 10 /uL 11/07/2018 11:00 PM [facility] Neutrophil % Manual 68(H) 30 - 60 % 11/07/2018 11:00 PM [facility] Lymphocyte % Manual 27 20 - 45 % 11/07/2018 11:00 PM [facility] Monocytes % Manual 3 2 - 10 % 11/07/2018 11:00 PM [facility] Eosinophils % Manual 1 1 - 6 % 11/07/2018 11:00 PM [facility] Basophils % Manual 1 0 - 3 % 11/07/2018 11:00 PM [facility] Platelet Estimate Adequate Adequate 11/07/2018 11:00 PM [facility] RBC Morphology Normal 11/07/2018 11:00 PM [facility] Blood BLOOD SPECIMEN / Unknown Venipuncture / Unknown 11/07/2018 10:29 PM CDT 11/07/2018 10:29 PM CDT Yo Hicks MD LAB - HEMATOLOGY ORD ERABLES [facility] [address] [phone] * (ABNORMAL) CBC W AUTO DIFFERENTIAL (11/07/2018 10:29 PM CDT) WBC 11.7(H) 3.5 - 10.5 10 3/uL 11/07/2018 10:33 PM [facility] RBC 3.96(L) 4.30 - 5.70 10 6/uL 11/07/2018 10:33 PM [facility] Hemoglobin 13.6 13.5 - 17.5 g/dL 11/07/2018 10:33 PM [facility] Hematocrit 39.4 39.0 - 50.0 % 11/07/2018 10:33 PM [facility] MCV 99.5(H) 81.0 - 97.0 fL 11/07/2018 10:33 PM [facility] MCH 34.3(H) 28.0 - 34.0 pg 11/07/2018 10:33 PM [facility] MCHC 34.5 32.0 - 36.0 g/dL 11/07/2018 10:33 PM [facility] Platelet Count 192 150 - 400 10 3/uL 11/07/2018 10:33 PM [facility] RDW-SD 47.8 36.0 - 50.0 fL 11/07/2018 10:33 PM [facility] RDW-CV 12.9 11.2 - 14.8 % 11/07/2018 10:33 PM [facility] MPV 9.6 9.3 - 12.8 fL 11/07/2018 10:33 PM [facility] nRBC Absolute 0.00 0 10 3/uL 11/07/2018 10:33 PM [facility] nRBC Auto 0.0 0 /100 WBC 11/07/2018 10:33 PM T [facility] Blood BLOOD SPECIMEN / Unknown Venipuncture / Unknown 11/07/2018 10:29 PM CDT 11/07/2018 10:29 PM CDT Yo Hicks MD LAB - HEMATOLOGY ORD ERABLES [facility] [address] [phone] * (ABNORMAL) BASIC METABOLIC PANEL (CALCIUM TOTAL) (11/07/2018 10:29 PM CDT) BUN 14 7 - 26 mg/dL 11/07/2018 10:50 PM [facility] Creatinine 1.0 0.6 - 1.2 mg/dL 11/07/2018 10:50 PM [facility] Sodium 135(L) 136 - 145 mmol/L 11/07/2018 10:50 PM [facility] Potassium 3.6 3.5 - 4.5 mmol/L 11/07/2018 10:50 PM [facility] Chloride 102 98 - 107 mmol/L 11/07/2018 10:50 PM [facility] CO2 21(L) 22 - 29 mmol/L 11/07/2018 10:50 PM [facility] Glucose 89 70 - 115 mg/dL 11/07/2018 10:50 PM [facility] Calcium 8.8 8.4 - 10.2 mg/dL 11/07/2018 10:50 PM [facility] Anion Gap 16 8 - 18 11/07/2018 10:50 PM [facility] BUN/Creatinine Ratio 14 7 - 23 11/07/2018 10:50 PM [facility] Osmolality Calculated 280 270 - 300 mOsm/kg 11/07/2018 10:50 PM [facility] eGFR >60 >60 mL/min/1.7 3 m2 11/07/2018 10:50 PM [facility] Blood BLOOD SPECIMEN / Unknown Venipuncture / Unknown 11/07/2018 10:29 PM CDT 11/07/2018 10:29 PM CDT Yo Hicks MD LAB - CHEMISTRY [facility] Performing Organization Address [facility] Co de Phone Number [address] [phone] * (ABNORMAL) ALCOHOL ETHYL BLOOD (11/07/2018 10:29 PM CDT) Ethanol (mg/dL) 262(H) None Detected mg/dL 11/07/2018 10:50 PM CDT [facility] Comment: Ethanol in the patient's blood will contribute to the osmolar gap. Ethanol's contribution to the osmolar gap can be estimated by dividing the concentration of ethanol in mg/dL by 4.6. Blood BLOOD SPECIMEN / Unknown Venipuncture / Unknown 11/07/2018 10:29 PM CDT 11/07/2018 10:29 PM CDT Yo Hikcs MD LAB - CHEMISTRY [facility] DIOP [address] [phone]
--- OUTSIDE RECORDS SUMMARY | 2024-09-21 19:28 | XMS_ITS | Encounter Summary ---
Author Organization [facility] Address [address] [place] [address] Care Team Providers Care Door To Door Lead Generation Name Role Phone Unavailable Primary Care Provider Unavailabl e Encounter Details Date Type Department Care Team (Late st Contact Info) Description 11/08/2018 Ophth Exam [facility] [address] [place] [address] Keshia Li MD [address] [facility] [address] [place] [address] Social History Tobacco Use Types Packs/Day Years Used Date Smoking Tobacco: Every Day Cigarettes Smokeless Tobacco: Never Alcohol Use Standard Drinks/Week Comments Yes 0 (1 standard drink = 0.6 oz pur e alcohol) Sex and Gender Information Value Date Recorded Sex Assigned at Not on file Gender Identity Not on file Sexual Orientation Not on file documented as of this encounter Plan of Treatment Not on file documented as of this encounter Visit Diagnoses Not on filedocumented in this encounter
[2024-09-21 19:55] LABS: Basophils Absolute Auto 0.1 K/mm3 (0.0-0.1); Basophils Percent Auto 0.9 % (0.2-1.2); Eosinophils Absolute Auto 0.6 K/mm3 (0-0.3); Eosinophils Percent Auto 4.5 % (0-4.4); Hematocrit 45.1 % (42.0-52.0); Hemoglobin 15.5 g/dL (14.0-18.0); Immature Granulocyte Absolute 0.08 K/mm3 (0.00-0.031); Immature Granulocyte Percent A 0.6 % (0-0.5); Lymphocytes Absolute Auto 2.09 K/mm3 (0.9-3.2); Lymphocytes Percent Auto 16.3 % (18.3-44.2); Mean Corpuscular HGB Conc 34.4 g/dl (32-36); Mean Corpuscular Hemoglobin 34.4 pg (26-34); Mean Corpuscular Volume 100.2 fl (80-100); Mean Platelet Volume 9.5 fl (7.4-10.4); Monocytes Absolute Auto 0.7 K/mm3 (0.1-0.6); Monocytes Percent Auto 5.7 % (2.6-8.5); Neutrophils Absolute Auto 9.3 K/mm3 (1.3-6.7); Platelet Count Result 207 k/mm3 (150-375); Red Cell Distribution Width 13.7 % (11.5-14.5); White Blood Count 12.8 K/mm3 (4.5-10.0)
[2024-09-21 20:07] LABS: Prothrombin Time 13.5 Seconds (11.1-14.7)
[2024-09-21 20:09] LABS: Lactic Acid Reflex 2.5 mmol/L (0.7-2.0)
[2024-09-21 20:10] LABS: Alanine Aminotransferase 34 U/L (6-50); Albumin Level 4.5 g/dL (3.5-5.1); Alkaline Phosphatase 72 U/L (38-126); Anion Gap 16 mmol/L (4-12); Aspartate Amino Transferase 34 U/L (17-59); Bilirubin,Total 0.4 mg/dL (0.2-1.3); Blood Urea Nitrogen 11 mg/dL (9-20); Calcium 8.6 mg/dL (8.4-10.2); Carbon Dioxide 18 mmol/L (22-30); Chloride 99 mmol/L (98-107); Estimated CRCL calculation 59 ml/min; Estimated Glomerular Filt Rate 60; Glucose 100 mg/dL (65-110); Potassium 3.7 mmol/L (3.4-5.0); Sodium 133 mmol/L (137-145)
[2024-09-21 20:11] LABS: Acetaminophen < 10 ug/mL (10-30); Ethanol 290 mg/dL (<10); Salicylate < 1.0 mg/dL (2-20)
--- NOTE | 2024-09-21 20:13 | PC.NURSE ---
Patient began attemting to get out of bed. This RN attempted to verbally deescalate patient without success. Security called to assist. veronica Farr, sitting for safety
--- NOTE | 2024-09-21 20:20 | PC.NURSE ---
Patient does not have an IV and provider aware and is okay with waiting until patient calms down to attempt to start an IV
[2024-09-21 20:36] LABS: Add Urine Microscopic? YES; Appearance Urine Clear (Clear); Bacteria Urine None Seen /hpf; Bilirubin Urine Negative (Negative); Blood Urine Negative (Negative); Color Urine Yellow (Yellow); Glucose Urine UA Negative (Negative); Ketones Urine Negative (Negative); Leukocyte Esterase Ur Trace LEU/UL (Negative); Need Manual Microscopic Reviewed; Nitrate Urine Negative (Negative); Non Pathogenic Casts 0-2; Protein Urine Negative (Negative); RBC Urine 0-2 /hpf (0-2); Specific Grav Ur 1.005 (1.001-1.035); Squamous Epithelial Cell Urine None Seen /hpf (Few); Urobilinogen Urine 0.2 mg/dL (<2.0); WBC Urine 0-5 /hpf (0-3); pH Urine 5.5 (5.0-9.0)
[2024-09-21 20:40] LABS: Amphetamine Screen Urine Negative (Negative); Barbiturate Screen Urine Negative (Negative); Benzodiazepines Screen Urine Negative (Negative); Cannabinoid Screen Urine Positive (Negative); Cocaine Screen Urine Negative (Negative); Methadone Screen Urine Negative (Negative); Opiate Screen Urine Negative (Negative); Phencyclidine Screen Urine Negative (Negative)
--- NOTE | 2024-09-21 21:51 | PC.NURSE ---
Patient sitting in recliner in room. Chika still sitting at bedside for safety
[2024-09-21 22:52] LABS: Reflex Lactic Acid Yes or No Add Lactic
--- NOTE | 2024-09-21 23:23 | PC.NURSE ---
[employer]AT[employer] AT BEDSIDE
== END 2024-09-21 23:27 | disposition home or self-care (01) ==
PROVIDERS: Emergency Medicine; Emergency Provider Emergency Medicine
DX: F10.129 Alcohol abuse with intoxication, unspecified (principal); Y90.8 Blood alcohol level of 240 mg/100 ml or more; I10 Essential (primary) hypertension; I44.0 Atrioventricular block, first degree
CPT/HCPCS: 36415; 70450; 71045; 80053; 80143; 80179; 80307; 81001; 82077; 83605; 85025; 85610; 85730; 87040; 93005; 96361; 96374; 96375; 99284